=== PATIENT | male | born 1960 | race Caucasian/White ===

== ENCOUNTER 2022-01-03 06:49 | Inpatient (IN) | payer MEDICAID ==
[2021-12-28 11:19] LABS: BASOPHILS % (AUTO) 0.5 % (0-1); EOSINOPHILS # (AUTO) 0.1 X10'3 (0-0.9); EOSINOPHILS % (AUTO) 1.1 % (0-6); LYMPHOCYTES # (AUTO) 1.1 X10'3 (1.1-4.8); LYMPHOCYTES % (AUTO) 15.8 % (21-51); MEAN CORPUSCULAR HEMOGLOBIN 29.6 PG (27.0-31.0); MEAN CORPUSCULAR HGB CONC 33.6 g/dL (33.0-36.5); MEAN PLATELET VOLUME 7.6 FL (7.4-10.4); MONOCYTES # (AUTO) 0.7 X10'3 (0-0.9); MONOCYTES % (AUTO) 10.5 % (2-12); NEUTROPHILS # (AUTO) 4.8 X10'3 (1.8-7.7); NEUTROPHILS % (AUTO) 72.1 % (42-75); PRE OP HEMOGLOBIN 14.1 g/dL (14.0-17.9); PRE OP PLATELET COUNT 237 X10'3 (140-440); RED BLOOD COUNT 4.77 X10'6 (4.70-6.10); RED CELL DISTRIBUTION WIDTH 14.1 % (11.5-14.5)
[2021-12-28 12:30] LABS: ALBUMIN 3.7 G/DL (3.4-5.0); ALBUMIN/GLOBULIN RATIO 1.2 (1.1-1.5); ALKALINE PHOSPHATASE 56 IU/L (46-116); BLOOD UREA NITROGEN 16 MG/DL (7-18); CALCIUM 8.7 MG/DL (8.5-10.1); CHLORIDE 105 MMOL/L (99-107); CREATININE 0.84 MG/DL (0.60-1.10); PRE OP ALT 27 U/L (30-65); PRE OP ANION GAP 11 (8-16); PRE OP AST 21 U/L (10-37); PRE OP BILIRUB, TOTAL 0.4 MG/DL (0.0-1.0); PRE OP GLUCOSE 106 MG/DL (70-104); PRE OP POTASSIUM 4.6 MMOL/L (3.4-5.1); PRE OP SODIUM 144 MMOL/L (135-145); TOTAL PROTEIN 6.7 G/DL (6.4-8.2); eGFR > 90 ML/MIN
[2021-12-28 12:50] LABS: HEMOGLOBIN A1C 6.4 % (4.5-6.2)
[~2022-01-03] VITALS: Ht 172.7 cm; Wt 127.4 kg
[2022-01-03] VITALS (22 sets, daily range): BP systolic 115–150; BP diastolic 71–88
[~2022-01-03 06:49] MED LIST: ACET-2778 PO; ASPI-1265 PO; BACL20TA PO; CALC-1215 PO; CARCD120C PO; CHRO1TAB8 PO; CIDE500T PO; CLOP75TA34 PO; DOCU-148 PO; FERR236T3 PO; GABA-534 PO; HYDR-4353 PO; LEVO125T PO; LISI10TA27 PO; MAGN100T6 PO; METF-516 PO; MONT10TA21 PO; MULT-1085 PO; PANT40TA54 PO; POTA8TAB46 PO; ROSU40TA PO; TUMERIC PO; ZINC50TA67 PO; ceFAZolin inj. 3,000 MG in normal saline 100ml IV soln 100 ML IV ONE; famotidine 20mg tablet PO ONE; ringers solution, lacted 1,000 ML IV SCH; tranexamic acid 650mg tablet PO ONE; vancomycin 1,500 MG in NS 300ml IV soln IV ONE
[2022-01-03] MEDS ORDERED: ROPIVAcaine 0.5% (5mg/ml) 30ml vial ONE (10:08)
[2022-01-03] MEDS ORDERED: ketorolac trometh. 30mg/ml inj. ONE (10:08)
[2022-01-03] MEDS ORDERED: fentaNYL /PF 50mcg/ml 5ml ampule ONE (11:19)
[2022-01-03] MEDS ORDERED: midazolam 1 mg/ML 2ml injection ONE (11:19)
[2022-01-03] MEDS ORDERED: rocuronium 10mg/ml inj IV ONE (11:25)
[2022-01-03] MEDS ORDERED: LIDOcaine 1%/PF 5ML 10 MG/ML VIAL ONE (11:25)
[2022-01-03] MEDS ORDERED: propofol inj 20 ML IV ONE (11:25)
[2022-01-03] MEDS ORDERED: sevoflurane 250ml liquid IH ONE (11:27)
[2022-01-03] MEDS ORDERED: morphine 4 MG/ML inj SYRINge IV PRN (12:20)
[2022-01-03] MEDS ORDERED: ringers solution, lacted 1,000 ML IV SCH (12:20)
[2022-01-03] MEDS ORDERED: ondansetron/PF 4mg/2ml inj IV PRN ×2 (12:20→14:20)
[2022-01-03] MEDS ORDERED: morphine 2 MG/ML inj. syringe IV PRN (12:20)
[2022-01-03] MEDS ORDERED: meperidine/PF 25mg/ml syringe IV PRN (12:20)
[2022-01-03] MEDS ORDERED: ketamine 50mg/5ml syringe ONE (12:50)
[2022-01-03] MEDS ORDERED: hydrALAZINE 20mg/ml inj. IV ONE (13:05)
[2022-01-03] MEDS ORDERED: labetalol 20mg/4ml (5mg/ml) syringe IV ONE (13:05)
[2022-01-03] MEDS ORDERED: docusate sod 100mg capsule PO PRN (14:20)
[2022-01-03] MEDS ORDERED: diphenhydrAMINE 25mg capsule PO PRN ×2 (14:20)
[2022-01-03] MEDS ORDERED: HYDROmorphone inj. 0.5 MG/0.5 ML DISP.SYRIN IV PRN (14:20)
[2022-01-03] MEDS ORDERED: HYDROmorphone 1 mg/ml syringe IV PRN (14:20)
[2022-01-03] MEDS ORDERED: oxyCODONE IR 5mg (immed. release) tablet PO PRN (14:20)
[2022-01-03] MEDS ORDERED: bisacodyl 10mg suppository rectal RC PRN (14:20)
[2022-01-03] MEDS ORDERED: acetaminophen 325mg tablet PO PRN ×2 (14:20)
[2022-01-03] MEDS ORDERED: magnesium hydroxide 30ml (MOM) UD suspension PO PRN (14:20)
[2022-01-03] MEDS ORDERED: baclofen 10mg tablet PO PRN (14:20)
[2022-01-03] MEDS ORDERED: sugammadex 200mg/2ml injection IV ONE (14:24)
[2022-01-03] MEDS ORDERED: albuterol 60 PUFF/8GM Inhaler IH ONE (14:36)
[2022-01-03] MEDS ORDERED: neostigmine methylsulfate 1 MG/ML 10ml vial ONE (14:36)
[2022-01-03] MEDS ORDERED: ondansetron/PF 4mg/2ml inj ONE (14:36)
[2022-01-03] MEDS ORDERED: glycopyrrolate 0.2mg/ml inj ONE (14:36)
[2022-01-03] MEDS ORDERED: naloxone 0.4 mg/ml inj ONE (14:36)
--- NOTE | 2022-01-03 14:39 | NUR ---
Received from OR via BED IN STABLE CONDITION , accompanied by Anesthesiologist and ACUTE CARE ASSISTANT report given by ACUTE CARE ASSISTANT AND Anesthesiolgist. Addendum: 01/03/22 at 1440 by Shruthi Contreras RN Amended: Links added.
--- NOTE | 2022-01-03 15:18 | NUR ---
Patient in room [facility]. I have received report from EDITH RN FROM [facility] and had the opportunity to ask questions and assume patient care.
[2022-01-03] MEDS: meperidine/PF 25mg/ml syringe IV PRN ×2 (15:49→16:02)
[2022-01-03] MEDS: oxyCODONE IR 5mg (immed. release) tablet PO PRN ×2 (15:54→20:06)
[2022-01-03] MEDS: gabapentin 400mg capsule PO SCH (16:00)
--- NOTE | 2022-01-03 16:23 | NUR ---
PATIENT DISCHARGED FROM PACU IN STABLE CONDITION AFTER REPORT GIVEN TO RN TAKING OVER PATIENTS CARE. PATIENT TRANSFERRED TO ROOM 349B VIA BED WITH RN X2. CPAP SET UP FOR PATIENT. Addendum: 01/03/22 at 1636 by Shruthi Contreras RN Amended: Links added.
[2022-01-03] MEDS: metFORMIN 500mg tablet PO SCH (17:30)
--- NOTE | 2022-01-03 18:45 | NUR ---
Problems reprioritized. Patient report given, questions answered & plan of care reviewed with STEPHANY MARTINEZ.
[2022-01-03] MEDS ORDERED: VANCOMYCIN 1GM/200ML IVPB 200 ML IV SCH (20:00)
[2022-01-03] MEDS ORDERED: APPLE CIDER VINEGAR PO SCH (21:00)
[2022-01-03] MEDS: sennosides 8.6mg tablet PO SCH (21:50)
[2022-01-03] MEDS: gabapentin 300mg capsule PO SCH (21:51)
[2022-01-03] MEDS: montelukast 10mg tablet PO SCH (21:51)
[2022-01-03] MEDS: potassium chloride 8mEq ER tablet PO SCH (21:58)
[2022-01-03] MEDS: ceFAZolin/D5W- 1GM premix 50 ML IV SCH (21:59)
[2022-01-03] MEDS: acetaminophen 325mg tablet PO SCH (22:01)
[2022-01-03] MEDS: potassium cl 20mEq in 1/2 NS 1,000 ML IV SCH ×2 (22:18→22:20)
[2022-01-04] VITALS: BP 137/69
[2022-01-04] MEDS: gabapentin 400mg capsule PO SCH (00:41)
[2022-01-04] MEDS: ceFAZolin/D5W- 1GM premix 50 ML IV SCH (00:42)
[2022-01-04 02:25] VITALS: BP 129/88
[2022-01-04 02:34] VITALS: BP 118/70
[2022-01-04] MEDS: acetaminophen 325mg tablet PO SCH ×4 (04:30→20:27)
[2022-01-04 06:17] LABS: BASOPHILS % (AUTO) 0.2 % (0-1); EOSINOPHILS % (AUTO) 0.1 % (0-6); HEMOGLOBIN 11.8 g/dl (14.0-17.9); LYMPHOCYTES # (AUTO) 0.7 X10'3 (1.1-4.8); LYMPHOCYTES % (AUTO) 5.6 % (21-51); MEAN CORPUSCULAR VOLUME 90.6 FL (78-98); MEAN PLATELET VOLUME 7.8 FL (7.4-10.4); MONOCYTES # (AUTO) 1.3 X10'3 (0-0.9); MONOCYTES % (AUTO) 11.6 % (2-12); NEUTROPHILS # (AUTO) 9.6 X10'3 (1.8-7.7); NEUTROPHILS % (AUTO) 82.5 % (42-75); PLATELET COUNT 229 X10'3 (140-440); RED BLOOD COUNT 4.08 X10'6 (4.70-6.10); RED CELL DISTRIBUTION WIDTH 14.8 % (11.5-14.5); WHITE BLOOD COUNT 11.6 X10'3 (4.5-11.0)
[2022-01-04 06:43] LABS: ANION GAP 9 (8-16); CHLORIDE 109 MMOL/L (99-107); POTASSIUM 4.4 MMOL/L (3.5-5.1); SODIUM 146 MMOL/L (135-145); TOTAL CARBON DIOXIDE 27.8 MMOL/L (24-32)
--- NOTE | 2022-01-04 06:49 | NUR ---
Patient in room [facility]. I have received report from Makenzie HAMMOND traveler and had the opportunity to ask questions and assume patient care.
[2022-01-04 07:00] VITALS: BP 152/76
[2022-01-04] MEDS ORDERED: non-formulary drug (Zinc 1 TAB) PO SCH (08:00)
[2022-01-04] MEDS ORDERED: TUMERIC 500 MG PO SCH (08:00)
[2022-01-04] MEDS ORDERED: aspirin 81mg tab.chew PO SCH (08:00)
[2022-01-04] MEDS ORDERED: [UNRECOGNIZED DRUG - REMARK] PO SCH (08:00)
[2022-01-04] MEDS: magnesium oxide 400mg tablet PO SCH (08:02)
[2022-01-04] MEDS: calcium carbonate/vitamin D3 tablet PO SCH (08:03)
[2022-01-04] MEDS: clopidogrel 75mg tablet PO SCH (08:03)
[2022-01-04] MEDS: aspirin 325mg tablet PO SCH (08:03)
[2022-01-04] MEDS: potassium chloride 8mEq ER tablet PO SCH ×2 (08:03→20:23)
[2022-01-04] MEDS: multivitamins, therapeutics tablet PO SCH (08:03)
[2022-01-04] MEDS: gabapentin 300mg capsule PO SCH ×3 (08:03→20:23)
[2022-01-04] MEDS: ferrous gluconate 324mg tablet PO SCH (08:03)
[2022-01-04] MEDS: lisinopril 10 MG tablet PO SCH (08:04)
[2022-01-04] MEDS: diltiazem CD 120mg capsule (once-daily) PO SCH (08:04)
[2022-01-04] MEDS: atorvastatin 20mg tablet PO SCH (08:05)
[2022-01-04] MEDS: oxyCODONE IR 5mg (immed. release) tablet PO PRN ×2 (09:35→14:47)
[2022-01-04] MEDS: levoTHYROXINE 125mcg tablet PO SCH (09:35)
[2022-01-04] MEDS: pantoprazole 40mg Tablet.DR PO SCH (09:35)
[2022-01-04] MEDS ORDERED: tamsulosin 0.4mg capsule PO ONE (11:34)
[2022-01-04] MEDS: metFORMIN 500mg tablet PO SCH ×2 (12:05→17:34)
[2022-01-04 13:06] VITALS: BP 126/81
--- NOTE | 2022-01-04 14:39 | NUR ---
Pt s/p L knee arthroplasty this admit, provided pt w/ written and verbal high protein diet ed w/ RD contact info Addendum: 01/04/22 at [address] Amended: Links added.
[2022-01-04] MEDS: HYDROcodone/acetaminophen 10/325mg tab PO PRN (17:35)
--- NOTE | 2022-01-04 18:22 | NUR ---
Problems reprioritized. Patient report given, questions answered & plan of care reviewed with EFRAIN HAMMOND TRAVELER.
[2022-01-04 19:00] VITALS: BP 141/79
[2022-01-04] MEDS: sennosides 8.6mg tablet PO SCH (20:23)
[2022-01-04] MEDS: montelukast 10mg tablet PO SCH (20:23)
[2022-01-04] MEDS: celeCOXIB 100mg capsule PO SCH (20:23)
[2022-01-04] MEDS ORDERED: tamsulosin 0.4mg capsule PO SCH (21:00)
[2022-01-05] VITALS: BP 116/63
[2022-01-05] MEDS: acetaminophen 325mg tablet PO SCH ×3 (02:26→13:40)
[2022-01-05] MEDS: HYDROcodone/acetaminophen 10/325mg tab PO PRN ×2 (05:56→13:42)
[2022-01-05 06:15] LABS: BASOPHILS % (AUTO) 0.1 % (0-1); EOSINOPHILS % (AUTO) 0.3 % (0-6); HEMATOCRIT 34.2 % (42.0-52.0); LYMPHOCYTES # (AUTO) 0.6 X10'3 (1.1-4.8); LYMPHOCYTES % (AUTO) 7.7 % (21-51); MEAN CORPUSCULAR HEMOGLOBIN 28.9 PG (27.0-31.0); MEAN CORPUSCULAR HGB CONC 32.2 g/dL (33.0-36.5); MEAN CORPUSCULAR VOLUME 89.7 FL (78-98); MEAN PLATELET VOLUME 8.1 FL (7.4-10.4); MONOCYTES # (AUTO) 1.3 X10'3 (0-0.9); MONOCYTES % (AUTO) 15.1 % (2-12); NEUTROPHILS # (AUTO) 6.4 X10'3 (1.8-7.7); NEUTROPHILS % (AUTO) 76.8 % (42-75); PLATELET COUNT 211 X10'3 (140-440); RED BLOOD COUNT 3.81 X10'6 (4.70-6.10); WHITE BLOOD COUNT 8.4 X10'3 (4.5-11.0)
--- NOTE | 2022-01-05 06:44 | NUR ---
Patient in room [facility]. I have received report from Makenzie Garrett traveler and had the opportunity to ask questions and assume patient care.
[2022-01-05 07:00] VITALS: BP 128/67
[2022-01-05 07:30] LABS: LARGE PLATELETS FEW; PLATELET ESTIMATE NORMAL; TOTAL CELLS COUNTED 100
[2022-01-05] MEDS: atorvastatin 20mg tablet PO SCH (07:51)
[2022-01-05] MEDS: levoTHYROXINE 125mcg tablet PO SCH (07:51)
[2022-01-05] MEDS: multivitamins, therapeutics tablet PO SCH (07:51)
[2022-01-05] MEDS: aspirin 325mg tablet PO SCH (07:51)
[2022-01-05] MEDS: diltiazem CD 120mg capsule (once-daily) PO SCH (07:52)
[2022-01-05] MEDS: magnesium oxide 400mg tablet PO SCH (07:52)
[2022-01-05] MEDS: calcium carbonate/vitamin D3 tablet PO SCH (07:52)
[2022-01-05] MEDS: gabapentin 300mg capsule PO SCH ×2 (07:52→13:39)
[2022-01-05] MEDS: celeCOXIB 100mg capsule PO SCH (07:52)
[2022-01-05] MEDS: lisinopril 10 MG tablet PO SCH (07:52)
[2022-01-05] MEDS: clopidogrel 75mg tablet PO SCH (07:52)
[2022-01-05] MEDS: ferrous gluconate 324mg tablet PO SCH (07:53)
[2022-01-05] MEDS: potassium chloride 8mEq ER tablet PO SCH (07:54)
[2022-01-05] MEDS: pantoprazole 40mg Tablet.DR PO SCH (07:54)
--- NOTE | 2022-01-05 08:52 | NUR ---
DM consult: Pt with T2DM, well controlled with A1c 6.4%. DM education not warranted at this time. Will continue to follow. Addendum: 01/05/22 at [address] Amended: Links added.
[2022-01-05] MEDS ORDERED: FLO0.4C PO (11:34)
[2022-01-05] MEDS ORDERED: tamsulosin capsule PO (11:34)
[2022-01-05 13:02] VITALS: BP 134/67
[2022-01-05] MEDS: metFORMIN 500mg tablet PO SCH (13:41)
[2022-01-05] MEDS ORDERED: acetaminophen 325mg tablet PO PRN (14:20)
--- NOTE | 2022-01-05 16:40 | NUR ---
Pt Dc to home. Pt is A & O x4 and in no apparent distress. Pt verbalizes understanding of all DC orders and is aware of all precautions. Pt able to teach back instructions. pt's IV removed intact. pt had all of his belongings already packed. Pt got dressed, and linette cargo picked him up.
== END 2022-01-05 16:30 | disposition home or self-care (01) | DRG 326 ==
LOC: PAS IN 06:49 → SUR 3N 18:06
PROVIDERS: ADMIT Orthopaedic Surgery; ATTEND Orthopaedic Surgery
PROC: 8E0YXBZ Computer Assisted Procedure of Lower Extremity (ICD-10-PCS; 2022-01-03)
PROC: 8E0Y0CZ Robotic Assisted Procedure of Lower Extremity, Open Approach (ICD-10-PCS; 2022-01-03)
PROC: 0SRD0J9 Replacement of Left Knee Joint with Synthetic Substitute, Cemented, Open Approach (ICD-10-PCS; principal; 2022-01-03 11:27)
DX: M17.0 Bilateral primary osteoarthritis of knee (principal); E11.9 Type 2 diabetes mellitus without complications; J44.9 Chronic obstructive pulmonary disease, unspecified; I10 Essential (primary) hypertension; K21.9 Gastro-esophageal reflux disease without esophagitis; G47.33 Obstructive sleep apnea (adult) (pediatric); E66.01 Morbid (severe) obesity due to excess calories; R32 Unspecified urinary incontinence; Z68.41 Body mass index [BMI] 40.0-44.9, adult; Z79.899 Other long term (current) drug therapy
CPT/HCPCS: 36415; 80051; 80053; 82948; 83036; 84443; 85007; 85025; 87081; 97110; 97116; 97161; 97530; A4215; A7000; C1713; C1776; G0378; J0360; J0690; J1170; J1885; J2175; J2250; J2310; J2405; J2704; J2710; J2795; J3010; J3370; J3480; J3490; J7040; J7120; U0003; U0005

== ENCOUNTER 2022-02-06 05:21 | Day surgery (SDC) | payer MEDICAID ==
[2022-01-30 11:14] LABS: BASOPHILS % (AUTO) 0.6 % (0-1); EOSINOPHILS # (AUTO) 0.2 X10'3 (0-0.9); EOSINOPHILS % (AUTO) 3.1 % (0-6); LYMPHOCYTES % (AUTO) 14.7 % (21-51); MEAN CORPUSCULAR HEMOGLOBIN 27.8 PG (27.0-31.0); MEAN CORPUSCULAR HGB CONC 31.8 g/dL (33.0-36.5); MEAN CORPUSCULAR VOLUME 87.4 FL (78-98); MEAN PLATELET VOLUME 7.6 FL (7.4-10.4); MONOCYTES # (AUTO) 0.6 X10'3 (0-0.9); MONOCYTES % (AUTO) 8.8 % (2-12); NEUTROPHILS # (AUTO) 5.1 X10'3 (1.8-7.7); NEUTROPHILS % (AUTO) 72.8 % (42-75); PRE OP HEMATOCRIT 37.6 % (42.0-52.0); PRE OP HEMOGLOBIN 11.9 g/dL (14.0-17.9); PRE OP PLATELET COUNT 300 X10'3 (140-440); RED CELL DISTRIBUTION WIDTH 14.6 % (11.5-14.5)
[2022-01-30 11:31] LABS: ALBUMIN 3.4 G/DL (3.4-5.0); ALBUMIN/GLOBULIN RATIO 0.9 (1.1-1.5); ALKALINE PHOSPHATASE 87 IU/L (46-116); BLOOD UREA NITROGEN 18 MG/DL (7-18); BUN/CREATININE RATIO 19.6 (5.4-32.0); CALCIUM 8.2 MG/DL (8.5-10.1); CHLORIDE 107 MMOL/L (99-107); CREATININE 0.92 MG/DL (0.60-1.10); PRE OP ALT 19 U/L (30-65); PRE OP ANION GAP 8 (8-16); PRE OP AST 14 U/L (10-37); PRE OP BILIRUB, TOTAL 0.4 MG/DL (0.0-1.0); PRE OP GLUCOSE 106 MG/DL (70-104); PRE OP POTASSIUM 4.2 MMOL/L (3.4-5.1); PRE OP SODIUM 144 MMOL/L (135-145); TOTAL CARBON DIOXIDE 29.5 MMOL/L (24-32); eGFR 84 ML/MIN
[~2022-02-06] VITALS: Ht 172.7 cm; Wt 122.1 kg
[2022-02-06] VITALS (24 sets, daily range): BP systolic 103–165; BP diastolic 66–99
[~2022-02-06 05:21] MED LIST changes: -MAGN100T6 PO; -ceFAZolin inj. 3,000 MG in normal saline 100ml IV soln 100 ML IV ONE; -famotidine 20mg tablet PO ONE; -tranexamic acid 650mg tablet PO ONE; -vancomycin 1,500 MG in NS 300ml IV soln IV ONE
[2022-02-06] MEDS ORDERED: cefazolin/dext.iso 2gm/50ml IV ONE (05:30)
[2022-02-06] MEDS ORDERED: famotidine 20mg tablet PO ONE (05:30)
[2022-02-06] MEDS ORDERED: vancomycin 1,500 MG in NS 300ml IV soln IV ONE (06:03)
[2022-02-06] MEDS ORDERED: midazolam 1 mg/ML 2ml injection ONE (07:21)
[2022-02-06] MEDS ORDERED: fentaNYL /PF 50mcg/ml 5ml ampule ONE (07:22)
[2022-02-06] MEDS ORDERED: cloNIDine hcl/PF 100mcg/ml inj ONE (07:25)
[2022-02-06] MEDS ORDERED: propofol inj 20 ML IV ONE (07:42)
[2022-02-06] MEDS ORDERED: dexamethasone sod phosphate 4mg/ml inj. ONE (07:42)
[2022-02-06] MEDS ORDERED: LIDOcaine 2% (20mg/ml) 5ml vial ONE (07:42)
[2022-02-06] MEDS ORDERED: ROPIVAcaine 0.5% (5mg/ml) 30ml vial ONE (07:42)
[2022-02-06] MEDS ORDERED: morphine 4 MG/ML inj SYRINge IV PRN (08:20)
[2022-02-06] MEDS ORDERED: morphine 2 MG/ML inj. syringe IV PRN (08:20)
[2022-02-06] MEDS ORDERED: meperidine/PF 25mg/ml syringe IV PRN ×2 (08:20)
[2022-02-06] MEDS ORDERED: ringers solution, lacted 1,000 ML IV SCH (08:20)
[2022-02-06] MEDS ORDERED: ondansetron/PF 4mg/2ml inj IV PRN (08:20)
[2022-02-06] MEDS ORDERED: proCHLORperazine 10 MG/2 ml inj IV PRN (08:20)
[2022-02-06] MEDS ORDERED: ondansetron/PF 4mg/2ml inj ONE (08:47)
--- NOTE | 2022-02-06 09:05 | NUR ---
Received from OR via [facility], accompanied by Anesthesiologist DR PETTY and report given by Anesthesiolgist. PT PRESENTS WITH PIV 20G LEFT FOREARM, LMA, VSS. Addendum: 02/06/22 at 0918 by Kerry Christopher RN, RN Amended: Links added.
[2022-02-06] MEDS ORDERED: HYDROcodone/acetaminophen 10/325mg tab PO PRN (09:20)
[2022-02-06] MEDS: meperidine/PF 25mg/ml syringe IV PRN ×2 (09:32→09:47)
[2022-02-06 10:11] LABS: APPEARANCE,SYNOVIAL FLUID BLOODY; COLOR,SYNOVIAL FLUID RED; NEUTROPHILS,SYNOVIAL FLUID 74 % (0-25); SYN RBC 172000 /CU MM (0); SYN WBC 2500 /CU MM (0-200)
[2022-02-06 10:12] LABS: LYMPHOCYTES,SYNOVIAL FLUID 23 % (0-75); MONOCYTES,SYNOVIAL FLUID 3 % (0-0)
--- NOTE | 2022-02-06 12:55 | NUR ---
ALL DISCHARGE CRITERIA HAS BEEN MET. VSS, PAIN AT A TOLERABLE LEVEL, VOIDING AND ABLE TO SAFELY AMBULATE AND TRANSFER SELF. IV TAKEN OUT WITHOUT ANY COMPLICATIONS. ALL DISCHARGE INSTRUCTIONS COVERED WITH PATIENT AND ALL QUESTIONS ANSWERED. PATIENT TAKEN OUT VIA WHEELCHAIR TO [employer] CAR[employer] WHO DROVE PATIENT HOME. PT LEFT WITH FRONT WHEEL WALKER, C-PAP AND BACKPACK AND 1 BELONGING BAG. Addendum: 02/06/22 at 1304 by Kerry Christopher RN, RN Amended: Links added.
--- NOTE | 2022-02-06 16:40 | NUR ---
PT CALLED [facility] AND REPORTS, THERE IS BLOOD COMING OUT OF MY WOUND AND 3 SUTURES ARE OUT" WHEN I ASKED THE PT WHY HE TOOK HIS BANDAGE OFF HE CHANGED HIS STORY TO "I DIDNT TAKE MY BANDAGE OFF, I JUST THINK THE SUTURES CAM OUT." I ASKED HIM TO TEXT ME A PICTURE OF THE WOUND AND HE REPORTED "I DO NOT HAVE A PEN HANDY". I EXPRESSED THAT IF THE WOUND WAS ACTIVELY BLEEDING TO GO TO THE ER. PT REPORTED THAT HE HAD NO WAY TO GET THERE, HE THEN SAID HE HAD TO CALL 911 DUE TO "BLOOD ID RUNNING DOWN MY LEG". DR MONTIEL NOTIFIED. Addendum: 02/06/22 at 1644 by Kerry Christopher RN, RN Amended: Links added.
== END 2022-02-06 12:55 | disposition home or self-care (01) ==
LOC: PAS 05:21
PROVIDERS: ATTEND Orthopaedic Surgery
DX: T84.023A Instability of internal left knee prosthesis, initial encounter (principal); E11.9 Type 2 diabetes mellitus without complications; E66.01 Morbid (severe) obesity due to excess calories; Z68.41 Body mass index [BMI] 40.0-44.9, adult; M17.11 Unilateral primary osteoarthritis, right knee; I11.0 Hypertensive heart disease with heart failure; I50.9 Heart failure, unspecified; J44.9 Chronic obstructive pulmonary disease, unspecified; G47.30 Sleep apnea, unspecified; I25.2 Old myocardial infarction; K21.9 Gastro-esophageal reflux disease without esophagitis; M19.90 Unspecified osteoarthritis, unspecified site; G89.18 Other acute postprocedural pain; Z91.018 Allergy to other foods; Z20.822 Contact with and (suspected) exposure to COVID-19; Z79.899 Other long term (current) drug therapy; Z79.84 Long term (current) use of oral hypoglycemic drugs; Z79.82 Long term (current) use of aspirin; Z79.01 Long term (current) use of anticoagulants; Z98.890 Other specified postprocedural states; Z85.850 Personal history of malignant neoplasm of thyroid; Z86.718 Personal history of other venous thrombosis and embolism; Z83.3 Family history of diabetes mellitus; Z82.49 Family history of ischemic heart disease and other diseases of the circulatory system; Y83.8 Other surgical procedures as the cause of abnormal reaction of the patient, or of later complication, without mention of misadventure at the time of the procedure; Y92.89 Other specified places as the place of occurrence of the external cause
CPT/HCPCS: 27422; 36415; 64447; 64999; 76942; 80053; 82948; 85025; 87015; 87070; 89051; 93005; J0735; J1100; J2175; J2250; J2270; J2405; J2704; J2795; J3010; J3370; J3490; J7030; J7040; J7120; U0003; U0005; Z7506; Z7508; Z7512; A4618; A6449; A7000

== ENCOUNTER 2022-02-06 17:19 | Emergency (ER) | payer MEDICAID ==
[~2022-02-06] VITALS: Ht 172.7 cm; Wt 118.2 kg
[~2022-02-06 17:19] MED LIST changes: -ringers solution, lacted 1,000 ML IV SCH
[2022-02-06 23:01] VITALS: BP 115/73
== END 2022-02-06 23:08 | disposition home or self-care (01) ==
LOC: ER 17:20
DX: S80.922A Unspecified superficial injury of left lower leg, initial encounter (principal); I25.10 Atherosclerotic heart disease of native coronary artery without angina pectoris; I11.0 Hypertensive heart disease with heart failure; I50.9 Heart failure, unspecified; I25.2 Old myocardial infarction; K21.9 Gastro-esophageal reflux disease without esophagitis; J44.9 Chronic obstructive pulmonary disease, unspecified; E11.9 Type 2 diabetes mellitus without complications; G89.29 Other chronic pain; Z56.0 Unemployment, unspecified; Z98.890 Other specified postprocedural states; Z91.018 Allergy to other foods; Z79.82 Long term (current) use of aspirin; Z79.899 Other long term (current) drug therapy; Y93.89 Activity, other specified; Y92.89 Other specified places as the place of occurrence of the external cause; Y99.8 Other external cause status
CPT/HCPCS: 99283

== ENCOUNTER 2022-02-28 13:09 | Emergency (ER) | payer MEDICAID ==
[~2022-02-28] VITALS: Ht 172.7 cm; Wt 108.0 kg
[2022-02-28 13:43] VITALS: BP 146/81
--- NOTE | 2022-02-28 14:55 | NUR ---
REVIEWED AND AGREE TO ALL DOCUMENTATION AND ASSESSMENTS DONE BY REBECA HAZEL.
== END 2022-02-28 17:34 | disposition home or self-care (01) ==
LOC: ER 13:10
DX: H53.8 Other visual disturbances (principal); H54.8 Legal blindness, as defined in USA; I25.10 Atherosclerotic heart disease of native coronary artery without angina pectoris; I11.0 Hypertensive heart disease with heart failure; I50.9 Heart failure, unspecified; E78.00 Pure hypercholesterolemia, unspecified; I25.2 Old myocardial infarction; J44.9 Chronic obstructive pulmonary disease, unspecified; K21.9 Gastro-esophageal reflux disease without esophagitis; E11.9 Type 2 diabetes mellitus without complications; G89.29 Other chronic pain; Z56.0 Unemployment, unspecified; Z86.69 Personal history of other diseases of the nervous system and sense organs; Z91.018 Allergy to other foods; Z79.82 Long term (current) use of aspirin; Z79.899 Other long term (current) drug therapy
CPT/HCPCS: 99282

== ENCOUNTER 2022-11-29 13:15 | Emergency (ER) | payer MEDICAID ==
[~2022-11-29] VITALS: Ht 170.2 cm; Wt 115.0 kg
[~2022-11-29 13:15] MED LIST changes: +FLO0.4C PO
[2022-11-29 13:27] VITALS: BP 152/89
--- NOTE | 2022-11-29 15:26 | NUR ---
TECH PLACING SPLINT TO RIGHT HAND- PT HAS GOOD CMS PRIOR TO AND AFTER SPLINTING. PT EDUCATED ON COMPARTMENT SYNDROME S/S AND WHEN HE SHOULD RETURN TO ED, OTHERWISE FOLLOW UP WITH ORTHO.
== END 2022-11-29 15:39 | disposition home or self-care (01) ==
LOC: ER 13:16
DX: S62.501A Fracture of unspecified phalanx of right thumb, initial encounter for closed fracture (principal); X58.XXXA Exposure to other specified factors, initial encounter; Y93.89 Activity, other specified; Y92.89 Other specified places as the place of occurrence of the external cause; Y99.8 Other external cause status
CPT/HCPCS: 29125; 73130; 99283

== ENCOUNTER 2022-12-12 20:10 | Emergency (ER) | payer MEDICAID ==
[~2022-12-12] VITALS: Ht 170.2 cm; Wt 105.9 kg
[2022-12-12] MEDS ORDERED: acetaminophen 325mg tablet PO ONE (20:35)
[2022-12-12 23:31] VITALS: BP 120/66
== END 2022-12-12 23:34 | disposition home or self-care (01) ==
LOC: ER 20:10
DX: S01.112A Laceration without foreign body of left eyelid and periocular area, initial encounter (principal); S50.02XA Contusion of left elbow, initial encounter; M25.512 Pain in left shoulder; H54.40 Blindness, one eye, unspecified eye; R60.0 Localized edema; M54.9 Dorsalgia, unspecified; I25.10 Atherosclerotic heart disease of native coronary artery without angina pectoris; I11.0 Hypertensive heart disease with heart failure; I50.9 Heart failure, unspecified; E78.00 Pure hypercholesterolemia, unspecified; J44.9 Chronic obstructive pulmonary disease, unspecified; K21.9 Gastro-esophageal reflux disease without esophagitis; G89.29 Other chronic pain; I25.2 Old myocardial infarction; E11.9 Type 2 diabetes mellitus without complications; Z56.0 Unemployment, unspecified; Z98.890 Other specified postprocedural states; Z91.018 Allergy to other foods; Z79.82 Long term (current) use of aspirin; Z79.84 Long term (current) use of oral hypoglycemic drugs; Z79.899 Other long term (current) drug therapy; W01.0XXA Fall on same level from slipping, tripping and stumbling without subsequent striking against object, initial encounter; Y93.89 Activity, other specified; Y92.89 Other specified places as the place of occurrence of the external cause; Y99.8 Other external cause status
CPT/HCPCS: 73030; 73080; 73610; 99284

== ENCOUNTER 2024-06-30 15:01 | Emergency (ER) | payer MEDICARE, MEDICAID ==
[~2024-06-30] VITALS: Ht 167.6 cm; Wt 100.0 kg
[~2024-06-30 15:01] MED LIST changes: -GABA-534 PO; +GABA-535 PO; +MONT-48 PO; -MONT10TA21 PO
[2024-06-30 15:51] LABS: BASOPHILS % (AUTO) 0.1 % (0-1); EOSINOPHILS % (AUTO) 0 % (0-6); HEMATOCRIT 40.7 % (42.0-52.0); HEMOGLOBIN 13.1 g/dl (14.0-17.9); LYMPHOCYTES # (AUTO) 0.5 X10'3 (1.1-4.8); LYMPHOCYTES % (AUTO) 3.8 % (21-51); MEAN CORPUSCULAR HEMOGLOBIN 29.3 PG (27.0-31.0); MEAN CORPUSCULAR HGB CONC 32.2 g/dL (33.0-36.5); MEAN PLATELET VOLUME 7.3 FL (7.4-10.4); MONOCYTES # (AUTO) 1.3 X10'3 (0-0.9); MONOCYTES % (AUTO) 9.5 % (2-12); NEUTROPHILS # (AUTO) 11.5 X10'3 (1.8-7.7); NEUTROPHILS % (AUTO) 86.6 % (42-75); PLATELET COUNT 288 X10'3 (140-440); RED BLOOD COUNT 4.48 X10'6 (4.70-6.10); RED CELL DISTRIBUTION WIDTH 14.1 % (11.5-14.5); WHITE BLOOD COUNT 13.3 X10'3 (4.5-11.0)
[2024-06-30 15:58] LABS: ALBUMIN 3.1 G/DL (3.4-5.0); ANION GAP 10 (8-16); BLOOD UREA NITROGEN 43 MG/DL (7-18); BUN/CREATININE RATIO 33.3 (10.0-20.0); CALCIUM 9.3 MG/DL (8.5-10.1); CHLORIDE 103 MMOL/L (99-107); CREATININE 1.29 MG/DL (0.60-1.10); GLUCOSE 115 MG/DL (70-104); POTASSIUM 3.2 MMOL/L (3.5-5.1); SODIUM 141 MMOL/L (135-145); eCRCL 52 ML/MIN; eGFR 56 ML/MIN
[2024-06-30] MEDS ORDERED: LISI5TAB22 PO (16:31)
[2024-06-30] MEDS ORDERED: LEVO-65 PO (17:49)
[2024-06-30] MEDS: potassium bicarbonate/cit acid 25mEq tablet.effervescent PO ONE (18:11)
[2024-06-30] MEDS: levoFLOXACIN 750MG TABLET PO ONE (18:13)
[2024-06-30] MEDS: levoFLOXACIN-Levaquin 500mg/D5 100 ML IV ONE (19:09)
[2024-06-30] MEDS: normal saline 1000ML IV soln IVB ONE (19:09)
[2024-06-30 20:21] VITALS: BP 150/80; PULSE 85; RESP 16; TEMP 98.5; O2SAT 97
== END 2024-06-30 20:23 | disposition home or self-care (01) ==
LOC: ER 15:03
DX: E86.0 Dehydration (principal); N45.3 Epididymo-orchitis; I25.10 Atherosclerotic heart disease of native coronary artery without angina pectoris; I11.0 Hypertensive heart disease with heart failure; I50.9 Heart failure, unspecified; E78.00 Pure hypercholesterolemia, unspecified; I25.2 Old myocardial infarction; J44.9 Chronic obstructive pulmonary disease, unspecified; K21.9 Gastro-esophageal reflux disease without esophagitis; E11.9 Type 2 diabetes mellitus without complications; G89.29 Other chronic pain; M54.9 Dorsalgia, unspecified; E07.9 Disorder of thyroid, unspecified; Z98.890 Other specified postprocedural states; Z56.0 Unemployment, unspecified; Z88.6 Allergy status to analgesic agent; Z79.82 Long term (current) use of aspirin; Z79.899 Other long term (current) drug therapy; Z79.2 Long term (current) use of antibiotics
CPT/HCPCS: 36415; 76870; 80048; 85025; 93005; 93976; 96365; 99285; J1956; J7030

== ENCOUNTER 2024-09-15 13:22 | Emergency (ER) | payer MEDICARE, MEDICAID ==
[~2024-09-15] VITALS: Ht 172.7 cm; Wt 101.3 kg
[~2024-09-15 13:22] MED LIST changes: -DOCU-148 PO; -FLO0.4C PO; -LISI10TA27 PO; +LISI5TAB22 PO; -TUMERIC PO
[2024-09-15 13:30] VITALS: BP 136/78; PULSE 76; RESP 18; TEMP 97.8; O2SAT 98
== END 2024-09-15 16:56 | disposition home or self-care (01) ==
LOC: ER 13:22
DX: N43.3 Hydrocele, unspecified (principal); I25.10 Atherosclerotic heart disease of native coronary artery without angina pectoris; I11.0 Hypertensive heart disease with heart failure; I50.9 Heart failure, unspecified; E78.00 Pure hypercholesterolemia, unspecified; G89.29 Other chronic pain; I25.2 Old myocardial infarction; J44.9 Chronic obstructive pulmonary disease, unspecified; K21.9 Gastro-esophageal reflux disease without esophagitis; E11.9 Type 2 diabetes mellitus without complications; Z91.018 Allergy to other foods; Z79.82 Long term (current) use of aspirin; Z79.899 Other long term (current) drug therapy
CPT/HCPCS: 76870; 93976; 99284

== ENCOUNTER 2024-10-13 05:56 | Inpatient (IN) | payer MEDICARE, MEDICAID ==
[2024-10-07 12:08] LABS: BASOPHILS % (AUTO) 0.2 % (0-1); EOSINOPHILS # (AUTO) 0.2 X10'3 (0-0.9); LYMPHOCYTES % (AUTO) 12.7 % (21-51); MEAN CORPUSCULAR HEMOGLOBIN 29.6 PG (27.0-31.0); MEAN CORPUSCULAR HGB CONC 32.8 g/dL (33.0-36.5); MEAN CORPUSCULAR VOLUME 90.4 FL (78-98); MEAN PLATELET VOLUME 6.9 FL (7.4-10.4); MONOCYTES # (AUTO) 0.7 X10'3 (0-0.9); MONOCYTES % (AUTO) 8.7 % (2-12); NEUTROPHILS # (AUTO) 5.8 X10'3 (1.8-7.7); NEUTROPHILS % (AUTO) 76.4 % (42-75); PRE OP HEMATOCRIT 38.6 % (42.0-52.0); PRE OP HEMOGLOBIN 12.6 g/dL (14.0-17.9); PRE OP PLATELET COUNT 226 X10'3 (140-440); PRE OP WHITE BLOOD COUNT 7.7 10'3 (4.8-10.8); RED BLOOD COUNT 4.27 X10'6 (4.70-6.10); RED CELL DISTRIBUTION WIDTH 14.7 % (11.5-14.5)
[2024-10-07 12:22] LABS: ALBUMIN 3.4 G/DL (3.4-5.0); ALBUMIN/GLOBULIN RATIO 1.2 (1.1-1.5); ALKALINE PHOSPHATASE 51 IU/L (46-116); BLOOD UREA NITROGEN 17 MG/DL (7-18); BUN/CREATININE RATIO 21.8 (10.0-20.0); CALCIUM 8.2 MG/DL (8.5-10.1); CHLORIDE 107 MMOL/L (99-107); CREATININE 0.78 MG/DL (0.60-1.10); PRE OP ALT 21 U/L (30-65); PRE OP ANION GAP 4 (8-16); PRE OP AST 18 U/L (10-37); PRE OP BILIRUB, TOTAL 0.5 MG/DL (0.0-1.0); PRE OP GLUCOSE 89 MG/DL (70-104); PRE OP POTASSIUM 4.7 MMOL/L (3.4-5.1); PRE OP SODIUM 143 MMOL/L (135-145); TOTAL CARBON DIOXIDE 31.7 MMOL/L (24-32); TOTAL PROTEIN 6.2 G/DL (6.4-8.2); eGFR > 90 ML/MIN
[~2024-10-13] VITALS: Ht 170.2 cm; Wt 100.7 kg
[2024-10-13] VITALS (18 sets, daily range): BP systolic 130–202; BP diastolic 75–97; PULSE 53–94; RESP 10–20; TEMP 97.4–97.6; O2SAT 16–99
[2024-10-13] MEDS: ceFAZolin 2gm in dextrose, iso 50 ML IV ONE (05:30)
[~2024-10-13 05:56] MED LIST changes: +ALIR75PE5 SQ; -CALC-1215 PO; -CARCD120C PO; -CHRO1TAB8 PO; -CIDE500T PO; +DILT180C66 PO; +DOCU-148 PO; +EZET10TA48 PO; -FERR236T3 PO; +LISI10TA27 PO; -LISI5TAB22 PO; +MAGN250T11 PO; -MULT-1085 PO; +MULT-1249 PO; -ZINC50TA67 PO; +vancomycin 1,500 MG in NS 300ml IV soln IV ONE
[2024-10-13] MEDS: famotidine 20mg tablet PO ONE (07:21)
[2024-10-13] MEDS: tranexamic acid 650mg tablet PO ONE (07:21)
[2024-10-13] MEDS: ringers solution, lacted 1,000 ML IV SCH (07:35)
[2024-10-13] MEDS: VANCOMYCIN 1,500MG in NS 300ml IVPB IV ONE (07:35)
[2024-10-13] MEDS ORDERED: mineral oil 10ml sterile, topical TP ONE (08:14)
[2024-10-13] MEDS ORDERED: ROPIVAcaine 0.5% (5mg/ml) 30ml vial ONE ×2 (08:14→09:48)
[2024-10-13] MEDS ORDERED: tranexamic acid 100mg/ml inj. ONE (08:14)
[2024-10-13] MEDS ORDERED: BUPIVACAINE/MELOXICAM 14 ML VIAL IL ONE (08:15)
[2024-10-13] MEDS ORDERED: BUPIVAcaine/dex-water/PF 7.5 mg/ml 2ml ampul ONE (09:12)
[2024-10-13] MEDS ORDERED: fentaNYL/PF 50MCG/1 ML 2ML syringe ONE (09:21)
[2024-10-13] MEDS ORDERED: MIDAZolam 1 MG/ML 5ML VIAL ONE (09:21)
[2024-10-13] MEDS ORDERED: ePHEDrine 50MG/ML INJ. ONE (09:48)
[2024-10-13] MEDS ORDERED: propofol inj 20 ML IV ONE (09:49)
[2024-10-13] MEDS: BUPIVACAINE/MELOXICAM 14 ML VIAL IL ONE (11:30)
[2024-10-13] MEDS ORDERED: labetalol 20mg/4ml (5mg/ml) syringe IV PRN (11:35)
[2024-10-13] MEDS ORDERED: ringers solution, lacted 1,000 ML IV SCH (11:35)
[2024-10-13] MEDS ORDERED: meperidine/PF 25mg/ml syringe IV PRN ×2 (11:35)
[2024-10-13] MEDS ORDERED: ondansetron/PF 4mg/2ml inj IV PRN ×2 (11:35→12:15)
[2024-10-13] MEDS ORDERED: enalaprilat dihydrate 2.5mg/2ml vial IV PRN (11:35)
[2024-10-13] MEDS ORDERED: proCHLORperazine 10 MG/2 ml inj IV PRN (11:35)
[2024-10-13] MEDS ORDERED: BUPIVAcaine/PF 7.5mg/ml (0.75%) 10ml vial ONE (11:41)
[2024-10-13] MEDS: meperidine/PF 25mg/ml syringe IV PRN (12:14)
[2024-10-13] MEDS ORDERED: bisacodyl 10mg suppository rectal RC PRN (12:15)
[2024-10-13] MEDS: ALIROCUMAB 75 MG/ML SQ SCH (12:15)
[2024-10-13] MEDS ORDERED: non-formulary drug (Acetaminophen (Acetaminophen ER) 1 TAB) PO PRN (12:15)
[2024-10-13] MEDS ORDERED: magnesium hydroxide 30ml (MOM) UD suspension PO PRN (12:15)
[2024-10-13] MEDS ORDERED: acetaminophen 325mg tablet PO PRN (12:15)
[2024-10-13] MEDS ORDERED: oxyCODONE IR 5mg (immed. release) tablet PO PRN (12:15)
[2024-10-13] MEDS ORDERED: naloxone 0.4 mg/ml inj IV PRN (12:15)
[2024-10-13] MEDS ORDERED: diphenhydrAMINE 25mg capsule PO PRN ×2 (12:15)
[2024-10-13] MEDS ORDERED: HYDROmorphone inj. 0.5 MG/0.5 ML DISP.SYRIN IV PRN (12:15)
[2024-10-13] MEDS: morphine 4 MG/ML inj SYRINge IV PRN (12:37)
[2024-10-13] MEDS: morphine 2 MG/ML inj. syringe IV PRN (12:54)
[2024-10-13] MEDS: acetaminophen 325mg tablet PO SCH (14:00)
[2024-10-13] MEDS: baclofen 10mg tablet PO PRN (14:57)
[2024-10-13] MEDS ORDERED: ceFAZolin/D5W- 1GM premix 50 ML IV SCH (16:00)
[2024-10-13] MEDS: LidoCAINE 2% Topical Jelly 11mL syringe (UROJET) TOP ONE (16:45)
[2024-10-13] MEDS: ceFAZolin/D5W- 1GM premix 50 ML IV SCH (18:05)
[2024-10-13] MEDS: gabapentin 400mg capsule PO SCH (18:06)
[2024-10-13] MEDS: VANCOMYCIN 1GM 200ML H20 (PEG) 200 ML IV SCH (19:23)
[2024-10-13] MEDS: HYDROmorphone 1 mg/ml syringe IV PRN (19:24)
[2024-10-13] MEDS: docusate sod 100mg capsule PO SCH (19:25)
[2024-10-13] MEDS: potassium cl 20mEq in 1/2 NS 1,000 ML IV SCH (19:31)
[2024-10-13] MEDS: METFORMIN HCL 500 MG PO SCH (20:00)
[2024-10-13] MEDS: potassium chloride 8mEq ER tablet PO SCH (21:00)
[2024-10-13] MEDS: sennosides 8.6mg tablet PO SCH (21:00)
[2024-10-13] MEDS: montelukast 10mg tablet PO SCH (21:28)
[2024-10-14 02:00] VITALS: BP 146/79; PULSE 63; RESP 13; TEMP 98.3; O2SAT 97
[2024-10-14] MEDS: oxyCODONE IR 5mg (immed. release) tablet PO PRN (05:01)
[2024-10-14 06:00] VITALS: BP 137/79; PULSE 70; RESP 16; TEMP 98.2; O2SAT 96
[2024-10-14 07:59] LABS: BASOPHILS % (AUTO) 0.1 % (0-1); EOSINOPHILS % (AUTO) 0.1 % (0-6); HEMATOCRIT 37.6 % (42.0-52.0); HEMOGLOBIN 12.6 g/dl (14.0-17.9); LYMPHOCYTES # (AUTO) 0.8 X10'3 (1.1-4.8); LYMPHOCYTES % (AUTO) 5.6 % (21-51); MEAN CORPUSCULAR HEMOGLOBIN 29.8 PG (27.0-31.0); MEAN CORPUSCULAR HGB CONC 33.5 g/dL (33.0-36.5); MEAN CORPUSCULAR VOLUME 89.1 FL (78-98); MEAN PLATELET VOLUME 7.7 FL (7.4-10.4); MONOCYTES # (AUTO) 1.6 X10'3 (0-0.9); MONOCYTES % (AUTO) 11.2 % (2-12); PLATELET COUNT 271 X10'3 (140-440); RED BLOOD COUNT 4.23 X10'6 (4.70-6.10); WHITE BLOOD COUNT 14.5 X10'3 (4.5-11.0)
[2024-10-14 08:00] VITALS: RESP 18; O2SAT 97
[2024-10-14] MEDS: multivitamins, therapeutics tablet PO SCH (08:29)
[2024-10-14] MEDS: atorvastatin 20mg tablet PO SCH (08:29)
[2024-10-14] MEDS: ezetimibe 10mg tablet PO SCH (08:29)
[2024-10-14] MEDS: diltiazem CD 180mg cap (once-daily) PO SCH (08:29)
[2024-10-14] MEDS: pantoprazole 40mg Tablet.DR PO SCH (08:30)
[2024-10-14] MEDS: lisinopril 10 MG tablet PO SCH (08:30)
[2024-10-14] MEDS: clopidogrel 75mg tablet PO SCH (08:30)
[2024-10-14] MEDS: levoTHYROXINE 125mcg tablet PO SCH (08:30)
[2024-10-14 08:45] LABS: ANION GAP 11 (8-16); CHLORIDE 106 MMOL/L (99-107); POTASSIUM 3.8 MMOL/L (3.5-5.1); SODIUM 143 MMOL/L (135-145); TOTAL CARBON DIOXIDE 26.5 MMOL/L (24-32)
[2024-10-14 10:00] VITALS: BP 124/68; PULSE 89; RESP 18; TEMP 98.6; O2SAT 97
[2024-10-15] MEDS ORDERED: acetaminophen 325mg tablet PO PRN (18:20)
== END 2024-10-14 13:12 | disposition home health service (06) | DRG 470 ==
LOC: PAS IN 05:56 → ORTHO 4S 13:15
PROVIDERS: ADMIT Orthopaedic Surgery; ATTEND Orthopaedic Surgery
PROC: 3E0T3BZ Introduction of Anesthetic Agent into Peripheral Nerves and Plexi, Percutaneous Approach (ICD-10-PCS; 2024-10-13)
PROC: 3E0T33Z Introduction of Anti-inflammatory into Peripheral Nerves and Plexi, Percutaneous Approach (ICD-10-PCS; 2024-10-13)
PROC: 8E0YXBZ Computer Assisted Procedure of Lower Extremity (ICD-10-PCS; 2024-10-13)
PROC: 8E0Y0CZ Robotic Assisted Procedure of Lower Extremity, Open Approach (ICD-10-PCS; 2024-10-13)
PROC: 0SRC0J9 Replacement of Right Knee Joint with Synthetic Substitute, Cemented, Open Approach (ICD-10-PCS; principal; 2024-10-13 09:12)
DX: M17.11 Unilateral primary osteoarthritis, right knee (principal); Z79.899 Other long term (current) drug therapy; Z91.018 Allergy to other foods
CPT/HCPCS: 36415; 80051; 80053; 82948; 83036; 85025; 87081; 93005; 97161; 97530; A4215; A4314; A4624; A7000; C1713; C1776; G0378; J0690; J1171; J2175; J2250; J2270; J2704; J2795; J3010; J3370; J3372; J3480; J3490; J7040; J7120

== ENCOUNTER 2024-10-23 17:07 | Emergency (ER) | payer MEDICARE, MEDICAID ==
[~2024-10-23] VITALS: Ht 167.6 cm; Wt 100.9 kg
[~2024-10-23 17:07] MED LIST changes: -vancomycin 1,500 MG in NS 300ml IV soln IV ONE
[2024-10-23 19:18] VITALS: BP 116/73; PULSE 75; RESP 16; TEMP 98.1; O2SAT 99
== END 2024-10-23 19:19 | disposition home or self-care (01) ==
LOC: ER 17:08
DX: S00.12XA Contusion of left eyelid and periocular area, initial encounter (principal); S40.012A Contusion of left shoulder, initial encounter; S09.8XXA Other specified injuries of head, initial encounter; I25.10 Atherosclerotic heart disease of native coronary artery without angina pectoris; I11.0 Hypertensive heart disease with heart failure; I50.9 Heart failure, unspecified; I25.2 Old myocardial infarction; K21.9 Gastro-esophageal reflux disease without esophagitis; J44.9 Chronic obstructive pulmonary disease, unspecified; E78.00 Pure hypercholesterolemia, unspecified; E11.9 Type 2 diabetes mellitus without complications; G89.29 Other chronic pain; M54.9 Dorsalgia, unspecified; E07.9 Disorder of thyroid, unspecified; Z56.0 Unemployment, unspecified; Z98.890 Other specified postprocedural states; Z91.018 Allergy to other foods; Z79.899 Other long term (current) drug therapy; Z79.1 Long term (current) use of non-steroidal anti-inflammatories (NSAID); W22.01XA Walked into wall, initial encounter; Y93.01 Activity, walking, marching and hiking; Y92.89 Other specified places as the place of occurrence of the external cause; Y99.8 Other external cause status
CPT/HCPCS: 70450; 73030; 99284